=== PATIENT | male | born 1965 | race Caucasian/White ===

== ENCOUNTER 2024-10-04 07:50 | Outpatient (AMB) | payer MEDICAID, SELFPAY ==
--- NOTE | 2024-10-04 08:12 | PD.ORTHCLVIS ---
Vital signs 10/04/24 08:17 Height 1.68 m Height Method Stated Weight 84.397 kg Weight Measurement Method Standing Scale BMI 30.0 BP 140/83 H Blood Pressure Source Automatic Cuff Blood Pressure Location Right Upper Arm Position Sitting Respiration 18 Pulse 78 Pulse Source Monitor Temp 97.6 F Temp Source Temporal Artery Scan Pulse Oximetry (%) 95 Oxygen Delivery Method Room Air Med/Allergies Allergies & Medications Allergies No Known Drug Allergies Allergy (Verified 10/04/24 08:18) Medication Reconciliation ibuprofen 600 mg tablet 600 mg PO Q8H PRN 10/04/24 [History Confirmed 10/04/24] meloxicam 7.5 mg tablet 7.5 mg PO QDAY #45 tabs 10/04/24 [Rx Confirmed 10/04/24] Subjective Visit Visit for: new patient and knee Immunization / Flu Flu Vaccine in the Last 12 Months: No Flu Vaccine Exclusion Criteria: No Exclusion Criteria History of Present Illness Chief complaint: Bilateral knee pain Iza is a pleasant 59-year-old male with left greater than right knee pain. This has been ongoing for several years. He has tried ibuprofen. He has not had any injections or physical therapy. He reports a lot of pain on the front and sides of his knees Personal History Occupation: unemployed Red flag PMH: none Pain Pain level (0-10): 8 Pain duration: constant Pain location: inside (medial) and anterior Pain quality: sharp, dull and aching Pain timing: increases with activity and stairs Associated signs & symptoms: other (specify) (instablity) Ambulatory data Ambulatory device: none Treatments Improvement with previous injections: No Improvement with PT: No Improvement with NSAIDS: n/a Review of Systems Review of Systems: All systems negative unless otherwise noted in HPI. Exam Exam Patient is in no acute distress and is cooperative with the examination today. Breathing is nonlabored. In no respiratory distress. Bilateral extremities were evaluated and demonstrates sensation intact to light touch. Palpable pedal pulses are present. No significant edema is present. Bilateral hips were examined. The patient has no pain with log roll of the hips. Internal rotation to 30 degrees and external rotation to 30 degrees is painless. Negative FADIR. The left knee was examined. The left knee is in [varus] alignment. Range of motion from [0-115] degrees. Knee is stable to varus and valgus as well as AP translation with <5mm. Patient has a [negative] McMurrays. There is [no] pain with patellofemoral compression and [no] crepitus noted. The knee is [tender] to palpation [medially]. The right knee was also examined. The right knee is in [varus] alignment. Range of motion from [0-120] degrees. Knee is stable to varus and valgus as well as AP translation with <5mm. Patient has a [negative] McMurrays. There is [no] pain with patellofemoral compression and [no] crepitus noted. The knee is [tender] to palpation [medially]. Left knee x-rays demonstrate severe joint space narrowing medially. The report says this is mild. I disagree with the report. These are nonweightbearing films Assessment and Plan Problem List (1) Degenerative arthritis of knee, bilateral: Status: Acute Plan: Griffin is a 59-year-old male with left greater than right knee pain. This has been ongoing for several years. We discussed nonoperative and operative options. We will get weightbearing films of both knees to assess his right knee as well. We will likely do injections at the next visit. Will start him on meloxicam. We will get x-rays to see him back in approximately 1 month Office Procedures GNS Level of Care Nursing/Assessment Patient Status: Initial/New Patient Nursing Assessment/Reassesment: Medication Reconciliation, Update PMH in EMR and Vital Signs Coordination of Care: Complex Care and Chronic Disease 1-5, Education Complex Pt/Fam, Consent,records obtained, informed consent, Results/Orders obtained and Staff clarify orders Special Needs: Language special needs New Patient Charge New Patient Point Assignment: 1094 New Patient Point Charge: CONTACT CENTER AGENT Level 3 ([id number]) Past Medical History Past Medical History Have you ever been diagnosed with any of the following: Respiratory Problems Smoking: No Smoking Exposure: No
[2024-10-04 08:17] VITALS: BP 140/83; PULSE 78; RESP 18; TEMP 36.4; O2SAT 95
== END 2024-10-04 08:14 | disposition home or self-care (01) ==
PROVIDERS: PCP Licensed Practical Nurse; Referring Provider Licensed Practical Nurse; Supervising Provider Orthopaedic Surgery Adult Reconstructive Orthopaedic Surgery; Visit Provider Orthopaedic Surgery Adult Reconstructive Orthopaedic Surgery
DX: M17.0 Bilateral primary osteoarthritis of knee (principal); M25.562 Pain in left knee; M25.561 Pain in right knee
CPT/HCPCS: 99203; G0463

== ENCOUNTER → 2024-10-04 | Outpatient (CLI) | payer MEDICAID, SELFPAY ==
--- NOTE | 2024-10-04 08:43 | XR_ITS ---
Examination: Bilateral knees 2 views Right lateral knee left lateral knee 2 views Bilateral axial knees single view Exam date and time: 05/04/2024 0949 hours INDICATIONS: Bilateral knee pain one year TECHNIQUE: Bilateral AP knees standing single view, bilateral PA knees standing single view 30 degrees flexion Standing right lateral knee left lateral knee 2 views Bilateral axial knees single view total 5 views FINDINGS: Moderate osteopenia Advanced narrowing [id number] medial joint spaces right and left knee Significant osteoarthritis lateral joint spaces Bilateral advanced osteoarthritis patellofemoral joints IMPRESSION: Bilateral advanced tricompartment osteoarthritis, most severe medial joint spaces
== END | disposition home or self-care (01) ==
PROVIDERS: PCP Orthopaedic Surgery Adult Reconstructive Orthopaedic Surgery; Referring Provider Orthopaedic Surgery Adult Reconstructive Orthopaedic Surgery; Visit Provider Orthopaedic Surgery Adult Reconstructive Orthopaedic Surgery
DX: M17.0 Bilateral primary osteoarthritis of knee (principal)
CPT/HCPCS: 73564

== ENCOUNTER 2024-10-10 08:42 | Outpatient (AMB) | payer MEDICAID, SELFPAY ==
[2024-10-10 08:54] VITALS: BP 156/96; PULSE 80; RESP 19; TEMP 36.2; O2SAT 97
--- NOTE | 2024-10-10 08:54 | PD.ORTHCLVIS ---
Vital signs 10/10/24 08:54 Weight 84.425 kg Weight Measurement Method Standing Scale BP 156/96 H Blood Pressure Source Automatic Cuff Blood Pressure Location Right Upper Arm Position Sitting Respiration 19 Pulse 80 Pulse Source Monitor Temp 97.1 F Temp Source Temporal Artery Scan Pulse Oximetry (%) 97 Oxygen Delivery Method Room Air Med/Allergies Allergies & Medications Allergies No Known Drug Allergies Allergy (Verified 10/10/24 08:57) Medication Reconciliation ibuprofen 600 mg tablet 600 mg PO Q8H PRN 10/04/24 [History Confirmed 10/10/24] meloxicam 7.5 mg tablet 7.5 mg PO QDAY #45 tabs 10/04/24 [Rx Confirmed 10/10/24] Exam Exam Patient is in no acute distress and is cooperative with the examination today. Breathing is nonlabored. In no respiratory distress. Bilateral extremities were evaluated and demonstrates sensation intact to light touch. Palpable pedal pulses are present. No significant edema is present. Bilateral hips were examined. The patient has no pain with log roll of the hips. Internal rotation to 30 degrees and external rotation to 30 degrees is painless. Negative FADIR. The left knee was examined. The left knee is in [varus] alignment. Range of motion from [0-115] degrees. Knee is stable to varus and valgus as well as AP translation with <5mm. Patient has a [negative] McMurrays. There is [no] pain with patellofemoral compression and [no] crepitus noted. The knee is [tender] to palpation [medially]. The right knee was also examined. The right knee is in [varus] alignment. Range of motion from [0-120] degrees. Knee is stable to varus and valgus as well as AP translation with <5mm. Patient has a [negative] McMurrays. There is [no] pain with patellofemoral compression and [no] crepitus noted. The knee is [tender] to palpation [medially]. Left knee x-rays demonstrate severe joint space narrowing medially. The report says this is mild. I disagree with the report. These are nonweightbearing films Weightbearing films were reviewed. This demonstrates bilateral joint space narrowing and arthritis Of significant severity with varus deformity Assessment and Plan Problem List (1) Degenerative arthritis of knee, bilateral: Status: Acute Plan: 59-year-old male with bilateral knee pain and bilateral knee arthritis. We discussed nonoperative and operative options. He is not tried significant conservative treatment. We will thus try bilateral cortisone injections today. He is done reasonably well with meloxicam Recommend knee cortisone injections as patient would like to proceed with conservative treatment at this time. The risks and benefits of the procedure were reviewed with the patient and patient gave verbal consent to continue with the procedure. Procedure: performed by Dr. Frederick Using sterile technique the Bilateral knees were thoroughly prepped with alcohol, and approximately 1 cc of Kenalog 40 mg/mL and 4 cc of 1% lidocaine was injected into each knee without resistance into the medial tibial femoral joint space. The patient tolerated the procedure. Office Procedures GNS Level of Care Nursing/Assessment Patient Status: Established Patient Nursing Assessment/Reassesment: Medication Reconciliation, Update PMH in EMR and Vital Signs Coordination of Care: Complex Care and Chronic Disease 1-5, Education Complex Pt/Fam, Consent,records obtained, informed consent, Results/Orders obtained and Staff clarify orders Special Needs: Language special needs Established Patient Charge Established Patient Point Assignment: 95 Established Patient Point Charge: EP Level 3 (80-115) Surgical Proc/IM SQ injection Major Surgical Procedure: Yes (bilateral knee injections) Medication Given Medication Given Medication Given: Yes Documented Dose Given: 8 Route: Infiitration Medication Given Medication Given Medication Given: Yes Documented Dose Given: 2 Route: Infiitration Office Meds Xylocaine 10 mg/mL (1 %) injection solution Performing Provider: Ethan Frederick MD Performing Location: [facility] Administered by: Ethan Frederick MD on 10/10/24 09:25 Dose Route Admin Location Dispensed Lot Number Expiration Date [facility] Trimming Caser 40 mL Infiltration 40 mL [id number] 06/21/27 29491-740-53 [facility] triamcinolone acetonide 40 mg/mL suspension for injection Performing Provider: Ethan Frederick MD Performing Location: [facility] Administered by: Ethan Frederick MD on 10/10/24 09:25 Dose Route Admin Location Dispensed Lot Number Expiration Date [facility] Trimming Caser 80 mg Infiltration 2 mL [id number] 03/21/26 6666-9456-12 [employer] [place] Intake Visit Data Collection Reason for Visit:: F/U XRAYS Seen by Clinical Staff ONLY (RN/MA): No Verbal consent obtained for Telemed visit?: No Supervisor Cab 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 He has tried Anti-inflammatories. He also reports that his knees have been curving inward. The pain is affecting his quality life and happiness. He has not tried injections and he wants to try today Pain Pain level (0-10): 6 Pain duration: WITH MOVEMENT Pain location: inside (medial) Pain quality: dull and aching Pain timing: night and increases with activity Associated signs & symptoms: numbness, weakness and stiffness Ambulatory data Ambulatory device: none Treatments Improvement with previous injections: No Improvement with PT: No Improvement with NSAIDS: n/a Review of Systems Review of Systems: All systems negative unless otherwise noted in HPI.
== END 2024-10-10 09:33 | disposition home or self-care (01) ==
LOC: HODSRG 08:42
PROVIDERS: Supervising Provider Orthopaedic Surgery Adult Reconstructive Orthopaedic Surgery; Visit Provider Orthopaedic Surgery Adult Reconstructive Orthopaedic Surgery
DX: M17.0 Bilateral primary osteoarthritis of knee (principal); M25.562 Pain in left knee; M25.561 Pain in right knee
CPT/HCPCS: 20610; 99213; J3301; J3490; G0463

== ENCOUNTER 2025-01-10 08:16 | Outpatient (AMB) | payer MEDICAID, SELFPAY ==
--- NOTE | 2025-01-10 08:45 | ORTHONT_ITS ---
Vital signs 01/10/25 08:48 Height 1.68 m Height Method Stated Weight 82.781 kg Weight Measurement Method Standing Scale BMI 29.3 BP 143/92 H Blood Pressure Source Automatic Cuff Blood Pressure Location Left Upper Arm Position Sitting Respiration 18 Pulse 85 Pulse Source Monitor Temp 97.9 F Temp Source Temporal Artery Scan Pulse Oximetry (%) 94 L Oxygen Delivery Method Room Air Med/Allergies Allergies & Medications Allergies No Known Drug Allergies Allergy (Verified 01/10/25 08:50) Medication Reconciliation ibuprofen 600 mg tablet 600 mg PO Q8H PRN 10/04/24 [History Confirmed 01/10/25] meloxicam 7.5 mg tablet 7.5 mg PO QDAY #45 tabs 10/04/24 [Rx Confirmed 01/10/25] Exam Exam Patient is in no acute distress and is cooperative with the examination today. Breathing is nonlabored. In no respiratory distress. Bilateral extremities were evaluated and demonstrates sensation intact to light touch. Palpable pedal pulses are present. No significant edema is present. Bilateral hips were examined. The patient has no pain with log roll of the hips. Internal rotation to 30 degrees and external rotation to 30 degrees is painless. Negative FADIR. The left knee was examined. The left knee is in [varus] alignment. Range of motion from [0-115] degrees. Knee is stable to varus and valgus as well as AP translation with <5mm. Patient has a [negative] McMurrays. There is [no] pain with patellofemoral compression and [no] crepitus noted. The knee is [tender] to palpation [medially]. The right knee was also examined. The right knee is in [varus] alignment. Range of motion from [0-120] degrees. Knee is stable to varus and valgus as well as AP translation with <5mm. Patient has a [negative] McMurrays. There is [no] pain with patellofemoral compression and [no] crepitus noted. The knee is [tender] to palpation [medially]. Left knee x-rays demonstrate severe joint space narrowing medially. The report says this is mild. I disagree with the report. These are nonweightbearing films Weightbearing films were reviewed. This demonstrates bilateral joint space narrowing and arthritis Of significant severity with varus deformity Assessment and Plan Problem List (1) Degenerative arthritis of knee, bilateral: Status: Acute Plan: 59-year-old male with bilateral knee pain and bilateral knee arthritis. We discussed nonoperative and operative options. He has tried cortisone injections, anti-inflammatories, home exercises. He is optimized for surgery medically. We thus discussed total knee replacement is a reasonable option. The left knee hurts more and we will start on the side The nature and purpose of the total knee replacement, alternative method(s) of treatment, the material risks involved, and the possibility of complications were fully explained to the patient. The patient does NOT have any of the following contraindications to TKA: - Active infection of the knee joint, OR - Active systemic bacteremia, OR - Active skin infection or open wound at surgical site, OR - Neuropathic arthritis, OR - Severe, rapidly progressive neurological disease, OR - Severe medical condition that makes risks of surgery outweigh the potential benefit The patient was told the most common risks and complications associated with a total knee replacement include, but are not limited to: blood clots in the leg, fatal pulmonary embolism, dislocation of the prosthesis, intraoperative and postoperative fractures of the femur or tibia, infection, failure of the prosthesis or grafting materials, complications from anesthesia, reactions to blood transfusions, postoperative leg length inequality, instability of the knee replacement, nerve damage or injury, vascular injury, delayed wound healing, infection, other injury or even . In addition, there are risks associated with anesthesia given during this operation. Also, the patient was told that after undergoing a total knee replacement there may still be persistent pain or disability. The patient was informed that the success of this operation in part depends upon the mechanical devices which are going to be implanted and that these devices can fail or malfunction, and may need to be repaired or replaced and there are no guarantees as to the longevity of this device or its parts and that it or its parts could fail prematurely. The patient was also notified that during the course of surgery, there may be a need to use bone graft from donors, and that any bone graft used will be carefully screened for communicable diseases, including AIDS, hepatitis, Greg-Creutzfeldt, or other diseases, but despite the screening procedures, there is a small chance that they could contract one of these diseases. Finally, the patient was asked to follow completely and fully with all advice and recommended treatments, and that recovery and ultimate outcome are affected by their compliance with recommended treatment. We discussed the risks, benefits and treatment alternatives, and the patient is interested in proceeding with surgery. We will try to set this up as expeditiously as possible. Office Procedures GNS Level of Care Nursing/Assessment Patient Status: Established Patient Nursing Assessment/Reassesment: Medication Reconciliation, Update PMH in EMR and Vital Signs Coordination of Care: Complex Care and Chronic Disease 1-5, Education Complex Pt/Fam, Consent,records obtained, informed consent, Results/Orders obtained and Staff clarify orders Special Needs: Language special needs Established Patient Charge Established Patient Point Assignment: 95 Established Patient Point Charge: EP Level 3 (80-115) MA Intake Visit Data Collection New Patient or Established: Established Patient (seen at [facility] within 3 years) Reason for Visit:: 3 MTH BL KNEE INJECTION F/U Seen by Clinical Staff ONLY (RN/MA): No Gas Engine Operator 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 He has tried Anti-inflammatories. He also reports that his knees have been curving inward. The pain is affecting his quality life and happiness. He has tried cortisone injections last time and only received 2 weeks of relief. He reports that the pain is affecting his quality of life and happiness Pain Pain level (0-10): 8 Pain duration: WITH MOVEMENT Pain location: anterior Pain quality: dull, aching and other (specify) (POPPING) Pain timing: increases with activity and stairs Associated signs & symptoms: weakness and stiffness Ambulatory data Ambulatory device: none Treatments Number of previous injections: 2 Improvement with previous injections: No Improvement with PT: No Improvement with NSAIDS: no Review of Systems Review of Systems: All systems negative unless otherwise noted in HPI.
[2025-01-10 08:48] VITALS: BP 143/92; PULSE 85; RESP 18; TEMP 36.6; O2SAT 94; BMI 29.3
== END 2025-01-10 09:08 | disposition home or self-care (01) ==
LOC: HODSRG 08:16
PROVIDERS: Supervising Provider Orthopaedic Surgery Adult Reconstructive Orthopaedic Surgery; Visit Provider Orthopaedic Surgery Adult Reconstructive Orthopaedic Surgery
DX: M17.0 Bilateral primary osteoarthritis of knee (principal)
CPT/HCPCS: 99213; G0463

== ENCOUNTER 2025-04-15 10:16 | Outpatient (AMB) | payer MEDICAID, SELFPAY ==
[2025-04-15 10:39] VITALS: BP 151/94; PULSE 75; RESP 18; TEMP 36.7; O2SAT 97; BMI 28.3
--- NOTE | 2025-04-15 10:39 | PD.ORTHCLVIS ---
Vital signs 04/15/25 10:39 Height 1.68 m Height Method Stated Weight 79.946 kg Weight Measurement Method Standing Scale BMI 28.3 BP 151/94 H Blood Pressure Source Automatic Cuff Blood Pressure Location Left Upper Arm Position Sitting Respiration 18 Pulse 75 Pulse Source Monitor Temp 98.1 F Temp Source Temporal Artery Scan Pulse Oximetry (%) 97 Oxygen Delivery Method Room Air Med/Allergies Allergies & Medications Allergies No Known Drug Allergies Allergy (Verified 04/15/25 10:40) Medication Reconciliation ibuprofen 600 mg tablet 600 mg PO Q8H PRN 10/04/24 [History Confirmed 04/15/25] meloxicam 7.5 mg tablet 7.5 mg PO QDAY #45 tabs 10/04/24 [Rx Confirmed 04/15/25] Exam Exam Patient is in no acute distress and is cooperative with the examination today. Breathing is nonlabored. In no respiratory distress. Bilateral extremities were evaluated and demonstrates sensation intact to light touch. Palpable pedal pulses are present. No significant edema is present. Bilateral hips were examined. The patient has no pain with log roll of the hips. Internal rotation to 30 degrees and external rotation to 30 degrees is painless. Negative FADIR. The left knee was examined. The left knee is in [varus] alignment. Range of motion from [0-115] degrees. Knee is stable to varus and valgus as well as AP translation with <5mm. Patient has a [negative] McMurrays. There is [no] pain with patellofemoral compression and [no] crepitus noted. The knee is [tender] to palpation [medially]. The right knee was also examined. The right knee is in [varus] alignment. Range of motion from [0-120] degrees. Knee is stable to varus and valgus as well as AP translation with <5mm. Patient has a [negative] McMurrays. There is [no] pain with patellofemoral compression and [no] crepitus noted. The knee is [tender] to palpation [medially]. Left knee x-rays demonstrate severe joint space narrowing medially. The report says this is mild. I disagree with the report. These are nonweightbearing films Weightbearing films were reviewed. This demonstrates bilateral joint space narrowing and arthritis Of significant severity with varus deformity Assessment and Plan Problem List (1) Degenerative arthritis of knee, bilateral: Status: Acute Plan: 59-year-old male with bilateral knee pain and bilateral knee arthritis. We discussed nonoperative and operative options. He has tried cortisone injections, anti-inflammatories, home exercises. He is optimized for surgery medically. We thus discussed total knee replacement is a reasonable option. The left knee hurts more and we will start on the side The nature and purpose of the total knee replacement, alternative method(s) of treatment, the material risks involved, and the possibility of complications were fully explained to the patient. The patient does NOT have any of the following contraindications to TKA: - Active infection of the knee joint, OR - Active systemic bacteremia, OR - Active skin infection or open wound at surgical site, OR - Neuropathic arthritis, OR - Severe, rapidly progressive neurological disease, OR - Severe medical condition that makes risks of surgery outweigh the potential benefit The patient was told the most common risks and complications associated with a total knee replacement include, but are not limited to: blood clots in the leg, fatal pulmonary embolism, dislocation of the prosthesis, intraoperative and postoperative fractures of the femur or tibia, infection, failure of the prosthesis or grafting materials, complications from anesthesia, reactions to blood transfusions, postoperative leg length inequality, instability of the knee replacement, nerve damage or injury, vascular injury, delayed wound healing, infection, other injury or even . In addition, there are risks associated with anesthesia given during this operation. Also, the patient was told that after undergoing a total knee replacement there may still be persistent pain or disability. The patient was informed that the success of this operation in part depends upon the mechanical devices which are going to be implanted and that these devices can fail or malfunction, and may need to be repaired or replaced and there are no guarantees as to the longevity of this device or its parts and that it or its parts could fail prematurely. The patient was also notified that during the course of surgery, there may be a need to use bone graft from donors, and that any bone graft used will be carefully screened for communicable diseases, including AIDS, hepatitis, Greg-Creutzfeldt, or other diseases, but despite the screening procedures, there is a small chance that they could contract one of these diseases. Finally, the patient was asked to follow completely and fully with all advice and recommended treatments, and that recovery and ultimate outcome are affected by their compliance with recommended treatment. We discussed the risks, benefits and treatment alternatives, and the patient is interested in proceeding with surgery. We will try to set this up as expeditiously as possible. Office Procedures GNS Level of Care Nursing/Assessment Patient Status: Established Patient Nursing Assessment/Reassesment: Medication Reconciliation, Update PMH in EMR and Vital Signs Coordination of Care: Complex Care and Chronic Disease 1-5, Education Complex Pt/Fam, Consent,records obtained, informed consent, Results/Orders obtained and Staff clarify orders Special Needs: Language special needs Established Patient Charge Established Patient Point Assignment: 95 Established Patient Point Charge: EP Level 3 (80-115) MA Intake Visit Data Collection New Patient or Established: Established Patient (seen at [facility] within 3 years) Reason for Visit:: PRE OP L TKA Seen by Clinical Staff ONLY (RN/MA): No 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 He has tried Anti-inflammatories. He also reports that his knees have been curving inward. The pain is affecting his quality life and happiness. He has tried cortisone injections last time and only received 2 weeks of relief. He reports that the pain is affecting his quality of life and happiness Pain Pain level (0-10): 8 Pain duration: WITH MOVEMENT Pain location: anterior Pain quality: dull, aching and other (specify) (POPPING) Pain timing: increases with activity and stairs Associated signs & symptoms: weakness and stiffness Ambulatory data Ambulatory device: none Treatments Number of previous injections: 2 Improvement with previous injections: No Improvement with PT: No Improvement with NSAIDS: no Review of Systems Review of Systems: All systems negative unless otherwise noted in HPI.
== END 2025-04-15 11:07 | disposition home or self-care (01) ==
LOC: HODSRG 10:16
PROVIDERS: Supervising Provider Orthopaedic Surgery Adult Reconstructive Orthopaedic Surgery; Visit Provider Orthopaedic Surgery Adult Reconstructive Orthopaedic Surgery
DX: M17.0 Bilateral primary osteoarthritis of knee (principal); M25.562 Pain in left knee; M25.561 Pain in right knee
CPT/HCPCS: 99213; G0463

== ENCOUNTER → 2025-04-15 | Outpatient (CLI) | payer MEDICAID, SELFPAY ==
--- NOTE | 2025-04-15 10:00 | XR_ITS ---
Examination: CT left lower extremity without intravenous contrast 2-D sagittal reconstructions. 2-D coronal reconstructions. 3-D reconstructions. Date and time of exam:April 15, 2025 1003 hours INDICATIONS: Diagnosis unilateral primary osteoarthritis left knee, left knee pain 2 years CTDI: vol (mGy):9.45 DLP: (mGycm):778 Technique: Multiple 1.25 mm axial sections of the left lower extremity without intravenous contrast have been obtained. 2-D sagittal and coronal reconstructions have been obtained. 3-D reconstructions have been obtained. Low dose protocols were performed. One or more of the following dose reduction techniques were used; automated exposure control, adjustment of the mA and/or KV according to patient size, use of iterative reconstruction technique. Findings: Mild osteopenia Mild left hip osteoarthritis, no left hip fracture or dislocation Advanced tricompartment osteoarthritis left knee Severe narrowing medial joint space No fracture IMPRESSION: Advanced tricompartment osteoarthritis left knee
== END | disposition home or self-care (01) ==
PROVIDERS: Referring Provider Orthopaedic Surgery Adult Reconstructive Orthopaedic Surgery; Visit Provider Orthopaedic Surgery Adult Reconstructive Orthopaedic Surgery
DX: M17.12 Unilateral primary osteoarthritis, left knee (principal)
CPT/HCPCS: 73700

== ENCOUNTER 2025-04-28 05:35 | Day surgery (SDC) | payer MEDICAID, SELFPAY ==
[2025-04-23 11:35] VITALS: BMI 28.3
[2025-04-23 12:18] LABS: Basophils # (Auto) 0.0 Thou/mm3 (0.0-0.2); Basophils % (Auto) 1 % (0-2.5); Eosinophils # (Auto) 0.1 Thou/mm3 (0.0-0.5); Eosinophils % (Auto) 2 % (0-10); Hematocrit 44.6 % (41.0-53.0); Hemoglobin 15.6 g/dL (13.5-16.0); Immature Granulocytes Auto 0.04 Thou/mm3 (0.00-0.00); Lymphocytes # (Auto) 2.4 Thou/mm3 (1.0-4.8); Lymphocytes % (Auto) 42 % (10-50); Mean Corpuscular HGB Conc 35.0 g/dl (31.0-37.0); Mean Corpuscular Hemoglobin 31.6 pg (25.0-35.0); Mean Corpuscular Volume 91 fL (80-100); Monocytes # (Auto) 0.5 Thou/mm3 (0.0-0.8); Monocytes % (Auto) 9 % (0-12); Neutrophils # (Auto) 2.6 Thou/mm3 (1.8-7.7); Neutrophils % (Auto) 46 % (37-80); Nucleated Red Blood Cell # 0.00 Thou/mm3 (0.00-0.00); Nucleated Red Blood Cell % 0 /100 WBC (0); Platelet Count 217 Thou/mm3 (140-440); RDW Standard Deviation 42.7 fL (35.1-43.9); Red Blood Count 4.93 Miln/mm3 (4.50-5.90); White Blood Count 5.8 Thou/mm3 (3.8-10.6)
[2025-04-23 12:33] LABS: INR 1.0 (0.9-1.3); Partial Thromboplastin Time 25.8 Seconds (22.0-36.0); Prothrombin Time 10.9 Seconds (9.0-12.2)
[2025-04-23 12:40] LABS: Alanine Aminotransferase 29 U/L (10-49); Albumin, Serum 4.7 gm/dL (3.4-4.8); Albumin/Globulin Ratio 1.7 (1.2-2.2); Alkaline Phosphatase 80 U/L (46-116); Anion Gap 6 (7-16); Aspartate Amino Transferase 29 U/L (0-34); BUN/Creatinine Ratio 16 Ratio (12-20); Bilirubin,Total 1.4 mg/dL (0.3-1.2); Blood Urea Nitrogen 16 mg/dL (9-23); Calcium 9.3 mg/dL (8.3-10.6); Calcium (Corrected) 9.3 mg/dL (8.5-10.1); Carbon Dioxide 26.7 mMol/L (20.0-31.0); Chloride 109 mMol/L (98-107); Creatinine (Component) 1.0 mg/dL (0.6-1.3); Estimated Creatinine Clearance 75.9 mL/min (>60); Globulin 2.7 gm/dL (2.3-3.5); Glucose 98 mg/dL (74-106); Osmolality,Calculated 284 (275-295); Potassium 4.2 mMol/L (3.4-5.1); Sodium 142 mMol/L (136-145); Total Protein 7.4 gm/dL (5.7-8.2); eGFR > 60 See Note
[2025-04-28] VITALS (11 sets, daily range): BP systolic 138–167; BP diastolic 82–104; PULSE 67–74; RESP 17–20; TEMP 36.5–36.7; O2SAT 95–100; BMI 19.9
[2025-04-28] MEDS: PREGABALIN 75 MG CAPSULE PO (06:26)
[2025-04-28] MEDS: MELOXICAM 7.5 MG TABLET PO (06:26)
[2025-04-28] MEDS: ACETAMINOPHEN 325 MG TABLET 650 MG PO (06:26)
--- NOTE | 2025-04-28 07:30 | SUR.PREOP ---
Patient expressed gratitude for prayer before their procedure.
--- NOTE | 2025-04-28 09:03 | PD.SUROPNT ---
Date of Procedure 04/28/25 Pre Op Diagnosis left knee osteoarthritis Post Op Diagnosis left knee osteoarthritis Procedure left total knee replacement alexia Findings full thickness cartilage loss and osteophytes Procedure Description left total knee replacement Anesthesia GETA Implants nba Pathology / specimen None Pathology comment: none Estimated Blood Loss 150 Condition Stable Disposition same day Surgeon Ethan Frederick MD Surgical Staff Operation Date: 04/28/25 07:30 Case Staff [employer] PRINCIPAL: Barney Hickman RNpara professional: Opal Ni
--- NOTE | 2025-04-28 09:05 | XR_ITS ---
Examination: left knee 2 views TECHNIQUE: AP lateral right knee 2 views Date and time: April 28, 2025 0958 hours INDICATIONS: Postop knee replacement FINDINGS: Total left knee arthroplasty Satisfactory alignment Moderate osteopenia IMPRESSION: Total left knee arthroplasty with satisfactory alignment
--- NOTE | 2025-04-28 09:24 | SUR.PHASEI ---
0924 Patient arrived to recovery resting comfortably in [facility], oral airway removed upon arrival, on oxygen 6L via oxy mask, breathing unlabored, vital signs stable, denies pain, dressing intact to left knee; prineo, telfa, abc, webril, jarrod wraps, no bleeding noted, bilateral dorsalis pedis pulses present when palpated, patient has good circultation to bilateral lower extremities; skin color normal for patient and warm to touch, report received from Andra GOMEZ and Barney THOMPSON.
--- NOTE | 2025-04-28 09:56 | SUR.PHASEII ---
0956 Barney THOMPSON at bedside, patient endorsed 4/10 pain, verbal order read-back received from Oxycodone IR 5mg oral tab x1 dose for pain, will enter order in EMR and administer to patient per anesthesia order
--- NOTE | 2025-04-28 10:03 | SUR.PHASEII ---
XRAY complete per MD order
--- NOTE | 2025-04-28 10:08 | SUR.PHASEII ---
1008 patient ate a jello; tolerated well
[2025-04-28] MEDS: oxyCODONE HCL 5 MG IR TAB PO (10:10)
--- NOTE | 2025-04-28 11:09 | SUR.PHASEII ---
1109 Patient cleared by physical therapist Tonny to proceed with discharge
[2025-04-28] MEDS: ONDANSETRON INJ 2 MG/ML INJ 2 ML 4 MG IVP (11:16)
--- NOTE | 2025-04-28 11:25 | SUR.PHASEII ---
1116 Patient endorsed nausea, Zofran 4mg IVP administered per anesthesia order, will monitor patient 1125 Medication effective, patient eating ice chips, denies nausea
--- NOTE | 2025-04-28 11:30 | SUR.PHASEII ---
1130 Patient meets discharge criteria from recovery, awake and alert, breathing unlabored, vital signs stable, denies pain, vital signs stable, dressing intact; no bleeding noted, eating ice chips; denies nausea, patient assisted with dressing into his clothing by this information writer, discharge instructions given to patient and patients son with the assistance of the telephone diplomatic interpreter Nestor ID#[id number], patients son signed discharge instructions. Patient given all his belongings prior to discharge, transported via wheelchair and left in a private vehicle.
== END 2025-04-28 11:30 | disposition home or self-care (01) ==
PROVIDERS: Anesthesiology; Referring Provider Orthopaedic Surgery Adult Reconstructive Orthopaedic Surgery; Visit Provider Orthopaedic Surgery Adult Reconstructive Orthopaedic Surgery
PROC: (CPT 27447; principal; 2025-04-28 07:30)
DX: M17.12 Unilateral primary osteoarthritis, left knee (principal); M25.762 Osteophyte, left knee
CPT/HCPCS: 27447; 20985; 36415; 73560; 80053; 85025; 85610; 85730; 97162; A4217; C1713; C1776; J0690; J1100; J1171; J2405; J2704; J3010; J3490; J7999; A4648; A4649; A9270

== ENCOUNTER 2025-05-13 11:23 | Outpatient (AMB) | payer MEDICAID, SELFPAY ==
[2025-05-13 11:41] VITALS: BP 118/79; PULSE 98; RESP 18; TEMP 36.6; O2SAT 97; BMI 27.3
--- NOTE | 2025-05-13 11:41 | ORTHONT_ITS ---
Vital signs 05/13/25 11:41 Height 1.68 m Height Method Stated Weight 77.337 kg Weight Measurement Method Standing Scale BMI 27.3 BP 118/79 Blood Pressure Source Automatic Cuff Blood Pressure Location Left Upper Arm Position Sitting Respiration 18 Pulse 98 Pulse Source Monitor Temp 97.8 F Temp Source Temporal Artery Scan Pulse Oximetry (%) 97 Oxygen Delivery Method Room Air Med/Allergies Allergies & Medications Allergies No Known Drug Allergies Allergy (Verified 05/13/25 11:43) Medication Reconciliation meloxicam 7.5 mg tablet 7.5 mg PO QDAY #45 tabs 10/04/24 [Rx Confirmed 05/13/25] acetaminophen 500 mg tablet (Acetaminophen Extra Strength) 1,000 mg (2 x 500 mg) PO Q6H PRN pain #90 tabs 04/28/25 [Rx Confirmed 05/13/25] aspirin 81 mg tablet,delayed release 81 mg PO BID #60 tabs 04/28/25 [Rx Confirmed 05/13/25] doxycycline hyclate 100 mg tablet 100 mg PO BID #14 tabs 04/28/25 [Rx Confirmed 05/13/25] gabapentin 300 mg capsule 300 mg PO .qhs #30 caps 04/28/25 [Rx Confirmed 04/23 12/17] sennosides 8.6 mg-docusate sodium 50 mg tablet (Senna-S) 1 tab-cap PO QDAY #30 tabs 04/28/25 [Rx Confirmed 05/13/25] gabapentin 300 mg capsule 300 mg PO QHS #60 caps 04/29/25 [Rx Confirmed 05/13] oxycodone 5 mg tablet 5 mg PO Q6H PRN pain #28 tabs 05/06/25 [Rx Confirmed 05/13/25] Exam Exam Patient is in no acute distress and is cooperative with the examination today. Breathing is nonlabored. Patient has a normal mood and affect. The patient has a gait that is nonantalgic Bilateral extremities were evaluated and demonstrates sensation intact to light touch. Palpable pedal pulses are present. No significant edema is present. Bilateral hips were examined. The patient has no pain with log roll of the hips. Internal rotation to 30 degrees and external rotation to 30 degrees is painless. Negative FADIR. Left knee was examined today. The left knee is in reasonable alignment. Range of motion from 0-120 degrees. Knee is stable to varus and valgus as well as AP translation with <5mm. Patient has a negative McMurrays. There is no pain with patellofemoral compression and no crepitus noted. The knee is nontender to palpation. Right knee incision is clean dry intact Assessment and Plan Problem List (1) History of total right knee replacement: Status: Acute Plan: Patient is a pleasant 60-year-old male status post right total knee replacement. He is doing well. He is transition to outpatient physical therapy. He should finish his aspirin Office Procedures GNS Level of Care Nursing/Assessment Patient Status: Established Patient Nursing Assessment/Reassesment: Medication Reconciliation, Update PMH in EMR and Vital Signs Coordination of Care: Complex Care and Chronic Disease 1-5, Education Complex Pt/Fam, Consent,records obtained, informed consent, Results/Orders obtained and Staff clarify orders Special Needs: Language special needs Established Patient Charge Established Patient Point Assignment: 95 Established Patient Point Charge: Level 3 (80-115) MA Intake Visit Data Collection New Patient or Established: Established Patient (seen at [facility] within 3 years) Reason for Visit:: 2 WEEK F/U LEFT TKA Seen by Clinical Staff ONLY (RN/MA): No Developer Architect Required: Yes PCP or OBGYN visit in last 3 months: Yes Hx Now: No Do You Feel Safe at Home: Yes Authorities Contacted: N/A Questionairres Past Medical History Past Medical History Have you ever been diagnosed with any of the following: Neurological Problems Seizures: No Cardiology Problems Congestive Heart Failure: No Respiratory Problems Chronic Obstructive Pulmonary Disease (COPD): No Smoking: No Smoking Exposure: No Stomache/Intestinal Problems Hepatitis: No Genital/Urinary Problems Renal Disease: No Musculoskeletal Problems Arthritis: Yes Endocrine Problems Diabetes Mellitus Type 1: No Diabetes Mellitus Type 2: No Other Problems Hospitalization: No Shingles: No Blood Transfusions: No Blood Transfusion Reaction: No Anesthesia Reactions: No Cancer: No Subjective Visit Visit for: follow up visit, post op #1 and knee Immunization / Flu Flu Vaccine in the Last 12 Months: No Flu Vaccine Exclusion Criteria: No Exclusion Criteria History of Present Illness Chief complaint: Right knee replacement Patient is doing well status post right total knee replacement. He reports the pain is well-controlled Pain Pain level (0-10): 7 Pain duration: ON AND OFF Pain location: inside (medial) and anterior Pain quality: dull and aching Pain timing: increases with activity Ambulatory data Ambulatory device: walker Treatments Improvement with previous injections: No Improvement with PT: No Improvement with NSAIDS: no Review of Systems Review of Systems: All systems negative unless otherwise noted in HPI.
== END 2025-05-13 11:47 | disposition home or self-care (01) ==
LOC: HODSRG 11:23
PROVIDERS: Supervising Provider Orthopaedic Surgery Adult Reconstructive Orthopaedic Surgery; Visit Provider Orthopaedic Surgery Adult Reconstructive Orthopaedic Surgery
DX: Z96.651 Presence of right artificial knee joint (principal)
CPT/HCPCS: 99213; G0463

== ENCOUNTER 2025-07-08 15:09 | Outpatient (AMB) | payer MEDICAID, SELFPAY ==
--- NOTE | 2025-07-08 15:30 | ORTHONT_ITS ---
Vital signs 07/08/25 15:41 Height 1.68 m Height Method Stated Weight 80.853 kg Weight Measurement Method Standing Scale BMI 28.6 BP 138/87 H Blood Pressure Source Automatic Cuff Blood Pressure Location Left Upper Arm Position Sitting Respiration 18 Pulse 84 Pulse Source Monitor Temp 97.6 F Temp Source Temporal Artery Scan Pulse Oximetry (%) 96 Oxygen Delivery Method Room Air Med/Allergies Allergies & Medications Allergies No Known Drug Allergies Allergy (Verified 07/08/25 15:41) Medication Reconciliation meloxicam 7.5 mg tablet 7.5 mg PO QDAY #45 tabs 10/04/24 [Rx Confirmed 07/08/25] acetaminophen 500 mg tablet (Acetaminophen Extra Strength) 1,000 mg (2 x 500 mg) PO Q6H PRN pain #90 tabs 04/28/25 [Rx Confirmed 07/08/25] sennosides 8.6 mg-docusate sodium 50 mg tablet (Senna-S) 1 tab-cap PO QDAY #30 tabs 04/28/25 [Rx Confirmed 07/08/25] gabapentin 300 mg capsule 300 mg PO QHS #60 caps 04/29/25 [Rx Confirmed 07/08/25] oxycodone 5 mg tablet 5 mg PO Q6H PRN pain #28 tabs 06/24/25 [Rx Confirmed 07/08/25] Exam Exam Patient is in no acute distress and is cooperative with the examination today. Breathing is nonlabored. Patient has a normal mood and affect. The patient has a gait that is nonantalgic Bilateral extremities were evaluated and demonstrates sensation intact to light touch. Palpable pedal pulses are present. No significant edema is present. Bilateral hips were examined. The patient has no pain with log roll of the hips. Internal rotation to 30 degrees and external rotation to 30 degrees is painless. Negative FADIR. Left knee was examined today. The left knee is in reasonable alignment. Range of motion from 0-120 degrees. Knee is stable to varus and valgus as well as AP translation with <5mm. Patient has a negative McMurrays. There is no pain with patellofemoral compression and no crepitus noted. The knee is nontender to palpation. Right knee incision is clean dry intact Assessment and Plan Problem List (1) History of total right knee replacement: Status: Acute Plan: Patient is a pleasant 60-year-old male status post left total knee replacement. He is doing well. Office Procedures GNS Level of Care Nursing/Assessment Patient Status: Established Patient Nursing Assessment/Reassesment: Medication Reconciliation, Update PMH in EMR and Vital Signs Coordination of Care: Complex Care and Chronic Disease 1-5, Education Complex Pt/Fam, Consent,records obtained, informed consent, Results/Orders obtained and Staff clarify orders Special Needs: Language special needs Established Patient Charge Established Patient Point Assignment: 95 Established Patient Point Charge: EP Level 3 (80-115) MA Intake Visit Data Collection New Patient or Established: Established Patient (seen at [facility] within 3 years) Reason for Visit:: 4 WK L TKA FU Seen by Clinical Staff ONLY (RN/MA): No Pack Train Driver 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: Yes PCP or OBGYN visit in last 3 months: Yes Hx Now: No Do You Feel Safe at Home: Yes Authorities Contacted: N/A Questionairres Past Medical History Past Medical History Have you ever been diagnosed with any of the following: Neurological Problems Seizures: No Cardiology Problems Congestive Heart Failure: No Respiratory Problems Chronic Obstructive Pulmonary Disease (COPD): No Smoking: No Smoking Exposure: No Stomache/Intestinal Problems Hepatitis: No Genital/Urinary Problems Renal Disease: No Musculoskeletal Problems Arthritis: Yes Endocrine Problems Diabetes Mellitus Type 1: No Diabetes Mellitus Type 2: No Other Problems Hospitalization: No Shingles: No Blood Transfusions: No Blood Transfusion Reaction: No Anesthesia Reactions: No Cancer: No Subjective Visit Visit for: follow up visit, post op #2 and knee Immunization / Flu Flu Vaccine in the Last 12 Months: No Flu Vaccine Exclusion Criteria: No Exclusion Criteria History of Present Illness Chief complaint: Right knee replacement 4 WEEK FU Patient is doing well status post left total knee replacement. He reports the pain is well-controlled. He reports that the right knee is actually considerably worse Pain Pain level (0-10): 7 Pain duration: ON AND OFF Pain location: inside (medial) and anterior Pain quality: dull and aching Pain timing: increases with activity Ambulatory data Ambulatory device: walker Treatments Improvement with previous injections: No Improvement with PT: No Improvement with NSAIDS: no Review of Systems Review of Systems: All systems negative unless otherwise noted in HPI.
[2025-07-08 15:41] VITALS: BP 138/87; PULSE 84; RESP 18; TEMP 36.4; O2SAT 96; BMI 28.6
--- NOTE | 2025-07-08 15:41 | XR_ITS ---
Examination: Bilateral AP knees single view Left knee PA lateral axial 3 views TECHNIQUE: Bilateral AP knees standing single view Left knee PA standing flexion, standing lateral, axial left knee 3 views total 4 views Date and time: July 08, 2025 1547 hours INDICATIONS: Post left knee arthroplasty April 2025. FINDINGS: Moderate osteopenia Severe narrowing medial joint space right knee Significant osteoarthritis lateral joint space right knee Total left knee arthroplasty. Satisfactory alignment. No patellar dislocation IMPRESSION: Severe narrowing medial joint space right knee Significant osteoarthritis lateral joint space right knee Total left knee arthroplasty with satisfactory alignment
== END 2025-07-08 15:45 | disposition home or self-care (01) ==
PROVIDERS: Supervising Provider Orthopaedic Surgery Adult Reconstructive Orthopaedic Surgery; Visit Provider Orthopaedic Surgery Adult Reconstructive Orthopaedic Surgery
DX: Z96.652 Presence of left artificial knee joint (principal); M17.11 Unilateral primary osteoarthritis, right knee
CPT/HCPCS: 73564; 99213; G0463

== ENCOUNTER 2025-08-12 14:47 | Outpatient (AMB) | payer MEDICAID, SELFPAY ==
--- NOTE | 2025-08-12 15:06 | PD.ORTHCLVIS ---
Vital signs 08/12/25 15:07 Height 1.68 m Height Method Measured Weight 80.768 kg Weight Measurement Method Standing Scale BMI 28.6 BP 132/94 H Blood Pressure Source Automatic Cuff Blood Pressure Location Left Upper Arm Position Sitting Respiration 18 Pulse 101 H Pulse Source Monitor Temp 97.7 F Temp Source Temporal Artery Scan Pulse Oximetry (%) 93 L Oxygen Delivery Method Room Air Med/Allergies Allergies & Medications Allergies No Known Drug Allergies Allergy (Verified 08/12/25 15:08) Medication Reconciliation meloxicam 7.5 mg tablet 7.5 mg PO QDAY #45 tabs 10/04/24 [Rx Confirmed 08/12/25] acetaminophen 500 mg tablet (Acetaminophen Extra Strength) 1,000 mg (2 x 500 mg) PO Q6H PRN pain #90 tabs 04/28/25 [Rx Confirmed 08/12/25] sennosides 8.6 mg-docusate sodium 50 mg tablet (Senna-S) 1 tab-cap PO QDAY #30 tabs 04/28/25 [Rx Confirmed 08/12/25] oxycodone 5 mg tablet 5 mg PO Q6H PRN pain #28 tabs 06/24/25 [Rx Confirmed 08/12/25] gabapentin 300 mg capsule 300 mg PO QHS #60 caps 07/08/25 [Rx Confirmed 08/12/25] Exam Exam Patient is in no acute distress and is cooperative with the examination today. Breathing is nonlabored. Patient has a normal mood and affect. The patient has a gait that is nonantalgic Bilateral extremities were evaluated and demonstrates sensation intact to light touch. Palpable pedal pulses are present. No significant edema is present. Bilateral hips were examined. The patient has no pain with log roll of the hips. Internal rotation to 30 degrees and external rotation to 30 degrees is painless. Negative FADIR. Left knee incisions clean dry intact. Range of motion 0 to 105 degrees Right knee is tender to palpation medially. There is varus deformity. Knee feels stable to varus and valgus stress as well as X-rays of the bilateral knees demonstrate significant joint space narrowing medially of the right knee with complete obliteration of the medial joint space. The left knee demonstrates a cementless total knee replacement in alignment and position Assessment and Plan Problem List (1) History of total right knee replacement: Status: Acute Plan: Patient is a pleasant 60-year-old male status post left total knee replacement. He is doing well. The pain in his right knee is affecting his quality life and happiness. He has tried multiple injections as well as anti-inflammatories and home exercises. He reports the pain is affecting his quality life and happiness. We discussed a right total knee replacement is a reasonable option The nature and purpose of the right total knee replacement, alternative method(s) of treatment, the material risks involved, and the possibility of complications were fully explained to the patient. The patient does NOT have any of the following contraindications to TKA: - Active infection of the knee joint, OR - Active systemic bacteremia, OR - Active skin infection or open wound at surgical site, OR - Neuropathic arthritis, OR - Severe, rapidly progressive neurological disease, OR - Severe medical condition that makes risks of surgery outweigh the potential benefit The patient was told the most common risks and complications associated with a total knee replacement include, but are not limited to: blood clots in the leg, fatal pulmonary embolism, dislocation of the prosthesis, intraoperative and postoperative fractures of the femur or tibia, infection, failure of the prosthesis or grafting materials, complications from anesthesia, reactions to blood transfusions, postoperative leg length inequality, instability of the knee replacement, nerve damage or injury, vascular injury, delayed wound healing, infection, other injury or even . In addition, there are risks associated with anesthesia given during this operation. Also, the patient was told that after undergoing a total knee replacement there may still be persistent pain or disability. The patient was informed that the success of this operation in part depends upon the mechanical devices which are going to be implanted and that these devices can fail or malfunction, and may need to be repaired or replaced and there are no guarantees as to the longevity of this device or its parts and that it or its parts could fail prematurely. The patient was also notified that during the course of surgery, there may be a need to use bone graft from donors, and that any bone graft used will be carefully screened for communicable diseases, including AIDS, hepatitis, Greg-Creutzfeldt, or other diseases, but despite the screening procedures, there is a small chance that they could contract one of these diseases. Finally, the patient was asked to follow completely and fully with all advice and recommended treatments, and that recovery and ultimate outcome are affected by their compliance with recommended treatment. We discussed the risks, benefits and treatment alternatives, and the patient is interested in proceeding with surgery. We will try to set this up as expeditiously as possible. Office Procedures GNS Level of Care Nursing/Assessment Patient Status: Established Patient Nursing Assessment/Reassesment: Medication Reconciliation, Update PMH in EMR and Vital Signs Coordination of Care: Complex Care and Chronic Disease 1-5, Education Complex Pt/Fam, Consent,records obtained, informed consent, Results/Orders obtained and Staff clarify orders Special Needs: Language special needs Established Patient Charge Established Patient Point Assignment: 95 Established Patient Point Charge: EP Level 3 (80-115) MA Intake Visit Data Collection New Patient or Established: Established Patient (seen at [facility] within 3 years) Reason for Visit:: XRAY F/U TKA Seen by Clinical Staff ONLY (RN/MA): No 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: 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 PCP or OBGYN visit in last 3 months: Yes Hx Now: No Do You Feel Safe at Home: Yes Authorities Contacted: N/A Questionairres Past Medical History Past Medical History Have you ever been diagnosed with any of the following: Neurological Problems Seizures: No Cardiology Problems Congestive Heart Failure: No Respiratory Problems Chronic Obstructive Pulmonary Disease (COPD): No Smoking: No Smoking Exposure: No Stomache/Intestinal Problems Hepatitis: No Genital/Urinary Problems Renal Disease: No Musculoskeletal Problems Arthritis: Yes Endocrine Problems Diabetes Mellitus Type 1: No Diabetes Mellitus Type 2: No Other Problems Hospitalization: No Shingles: No Blood Transfusions: No Blood Transfusion Reaction: No Anesthesia Reactions: No Cancer: No Subjective Visit Visit for: follow up visit and knee Immunization / Flu Flu Vaccine in the Last 12 Months: No Flu Vaccine Exclusion Criteria: No Exclusion Criteria History of Present Illness Chief complaint: XRAY F/U TKA Patient is doing well status post left total knee replacement. He reports the pain is well-controlled. He reports that the right knee is actually considerably worse. The pain in the right knee has been ongoing for several years, He has tried multiple injections and NSAIDs as well as home exercises. The last injection in the right knee only lasted for 1 week Pain Pain level (0-10): 2 Pain duration: ON AND OFF Pain location: inside (medial) and anterior Pain quality: dull and aching Pain timing: increases with activity Ambulatory data Ambulatory device: none Treatments Improvement with previous injections: No Improvement with PT: No Improvement with NSAIDS: no Review of Systems Review of Systems: All systems negative unless otherwise noted in HPI.
[2025-08-12 15:07] VITALS: BP 132/94; PULSE 101; RESP 18; TEMP 36.5; O2SAT 93; BMI 28.6
--- NOTE | 2025-08-12 15:27 | XR_ITS ---
Examination: Left hip AP, lateral, AP pelvis 3 views Technique: Hip AP lateral, AP pelvis, 3 views Exam date and time: August 12, 2025, 1527 hours MEDICATIONS: Left hip pain beginning 3 months ago. FINDINGS: No left hip fracture or dislocation Mild to moderate narrowing hip joints bilaterally Right hip bones of the pelvis intact IMPRESSION: No left hip fracture or dislocation Mild to moderate narrowing hip joints.
== END 2025-08-12 15:33 | disposition home or self-care (01) ==
PROVIDERS: Supervising Provider Orthopaedic Surgery Adult Reconstructive Orthopaedic Surgery; Visit Provider Orthopaedic Surgery Adult Reconstructive Orthopaedic Surgery
DX: Z47.1 Aftercare following joint replacement surgery (principal); Z96.652 Presence of left artificial knee joint; M25.561 Pain in right knee; M25.852 Other specified joint disorders, left hip
CPT/HCPCS: 73502; 99213; G0463

== ENCOUNTER 2025-09-09 10:56 | Outpatient (AMB) | payer MEDICAID, SELFPAY ==
[2025-09-09 11:09] VITALS: BP 131/86; PULSE 88; RESP 16; TEMP 36.7; O2SAT 96; BMI 28.8
--- NOTE | 2025-09-09 11:09 | PD.ORTHCLVIS ---
Vital signs 09/09/25 11:09 Height 1.68 m Height Method Stated Weight 81.335 kg Weight Measurement Method Standing Scale BMI 28.8 BP 131/86 H Blood Pressure Source Automatic Cuff Blood Pressure Location Left Upper Arm Position Sitting Respiration 16 Pulse 88 Pulse Source Monitor Temp 98.1 F Temp Source Temporal Artery Scan Pulse Oximetry (%) 96 Oxygen Delivery Method Room Air Med/Allergies Allergies & Medications Allergies No Known Drug Allergies Allergy (Verified 09/09/25 11:10) Medication Reconciliation meloxicam 7.5 mg tablet 7.5 mg PO QDAY #45 tabs 10/04/24 [Rx Confirmed 09/09/25] acetaminophen 500 mg tablet (Acetaminophen Extra Strength) 1,000 mg (2 x 500 mg) PO Q6H PRN pain #90 tabs 04/28/25 [Rx Confirmed 09/09/25] sennosides 8.6 mg-docusate sodium 50 mg tablet (Senna-S) 1 tab-cap PO QDAY #30 tabs 04/28/25 [Rx Confirmed 09/09/25] oxycodone 5 mg tablet 5 mg PO Q6H PRN pain #28 tabs 06/24/25 [Rx Confirmed 09/09/25] gabapentin 300 mg capsule 300 mg PO QHS #60 caps 07/08/25 [Rx Confirmed 09/09/25] Exam Exam Patient is in no acute distress and is cooperative with the examination today. Breathing is nonlabored. Patient has a normal mood and affect. The patient has a gait that is nonantalgic Bilateral extremities were evaluated and demonstrates sensation intact to light touch. Palpable pedal pulses are present. No significant edema is present. Bilateral hips were examined. The patient has no pain with log roll of the hips. Internal rotation to 30 degrees and external rotation to 30 degrees is painless. Negative FADIR. Left knee incisions clean dry intact. Range of motion 0 to 105 degrees Right knee is tender to palpation medially. There is varus deformity. Knee feels stable to varus and valgus stress as well as X-rays of the bilateral knees demonstrate significant joint space narrowing medially of the right knee with complete obliteration of the medial joint space. The left knee demonstrates a cementless total knee replacement in alignment and position Assessment and Plan Problem List (1) History of total right knee replacement: Status: Acute Plan: Patient is a pleasant 60-year-old male status post left total knee replacement. He is doing well. The pain in his right knee is affecting his quality life and happiness. He has tried multiple injections as well as anti-inflammatories and home exercises. He reports the pain is affecting his quality life and happiness. We discussed a right total knee replacement is a reasonable option The nature and purpose of the right total knee replacement, alternative method(s) of treatment, the material risks involved, and the possibility of complications were fully explained to the patient. The patient does NOT have any of the following contraindications to TKA: - Active infection of the knee joint, OR - Active systemic bacteremia, OR - Active skin infection or open wound at surgical site, OR - Neuropathic arthritis, OR - Severe, rapidly progressive neurological disease, OR - Severe medical condition that makes risks of surgery outweigh the potential benefit The patient was told the most common risks and complications associated with a total knee replacement include, but are not limited to: blood clots in the leg, fatal pulmonary embolism, dislocation of the prosthesis, intraoperative and postoperative fractures of the femur or tibia, infection, failure of the prosthesis or grafting materials, complications from anesthesia, reactions to blood transfusions, postoperative leg length inequality, instability of the knee replacement, nerve damage or injury, vascular injury, delayed wound healing, infection, other injury or even . In addition, there are risks associated with anesthesia given during this operation. Also, the patient was told that after undergoing a total knee replacement there may still be persistent pain or disability. The patient was informed that the success of this operation in part depends upon the mechanical devices which are going to be implanted and that these devices can fail or malfunction, and may need to be repaired or replaced and there are no guarantees as to the longevity of this device or its parts and that it or its parts could fail prematurely. The patient was also notified that during the course of surgery, there may be a need to use bone graft from donors, and that any bone graft used will be carefully screened for communicable diseases, including AIDS, hepatitis, Greg-Creutzfeldt, or other diseases, but despite the screening procedures, there is a small chance that they could contract one of these diseases. Finally, the patient was asked to follow completely and fully with all advice and recommended treatments, and that recovery and ultimate outcome are affected by their compliance with recommended treatment. We discussed the risks, benefits and treatment alternatives, and the patient is interested in proceeding with surgery. We will try to set this up as expeditiously as possible. Office Procedures GNS Level of Care Nursing/Assessment Patient Status: Established Patient Nursing Assessment/Reassesment: Medication Reconciliation, Update PMH in EMR and Vital Signs Coordination of Care: Complex Care and Chronic Disease 1-5, Education Complex Pt/Fam, Consent,records obtained, informed consent, Results/Orders obtained and Staff clarify orders Special Needs: Language special needs Established Patient Charge Established Patient Point Assignment: 95 Established Patient Point Charge: EP Level 3 (80-115) MA Intake Visit Data Collection New Patient or Established: Established Patient (seen at [facility] within 3 years) Reason for Visit:: PRE OP R TKA Seen by Clinical Staff ONLY (RN/MA): No 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: 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 PCP or OBGYN visit in last 3 months: Yes Hx Now: No Do You Feel Safe at Home: Yes Authorities Contacted: N/A Questionairres Past Medical History Past Medical History Have you ever been diagnosed with any of the following: Neurological Problems Seizures: No Cardiology Problems Congestive Heart Failure: No Respiratory Problems Chronic Obstructive Pulmonary Disease (COPD): No Smoking: No Smoking Exposure: No Stomache/Intestinal Problems Hepatitis: No Genital/Urinary Problems Renal Disease: No Musculoskeletal Problems Arthritis: Yes Endocrine Problems Diabetes Mellitus Type 1: No Diabetes Mellitus Type 2: No Other Problems Hospitalization: No Shingles: No Blood Transfusions: No Blood Transfusion Reaction: No Anesthesia Reactions: No Cancer: No Subjective Visit Visit for: follow up visit and knee Immunization / Flu Flu Vaccine in the Last 12 Months: No Flu Vaccine Exclusion Criteria: No Exclusion Criteria History of Present Illness Chief complaint: PRE OP R TKA Patient is doing well status post left total knee replacement. He reports the pain is well-controlled. He reports that the right knee is actually considerably worse. The pain in the right knee has been ongoing for several years, He has tried multiple injections and NSAIDs as well as home exercises. The last injection in the right knee only lasted for 1 week Pain Pain level (0-10): 2 Pain duration: ON AND OFF Pain location: inside (medial) and anterior Pain quality: dull and aching Pain timing: increases with activity Ambulatory data Ambulatory device: walker (PATIENT HAS OWN WALKER) and none Treatments Improvement with previous injections: No Improvement with PT: No Improvement with NSAIDS: no Review of Systems Review of Systems: All systems negative unless otherwise noted in HPI.
== END 2025-09-09 11:25 | disposition home or self-care (01) ==
PROVIDERS: Supervising Provider Orthopaedic Surgery Adult Reconstructive Orthopaedic Surgery; Visit Provider Orthopaedic Surgery Adult Reconstructive Orthopaedic Surgery
DX: Z47.1 Aftercare following joint replacement surgery (principal); Z96.652 Presence of left artificial knee joint; M25.561 Pain in right knee
CPT/HCPCS: 99213; G0463

== ENCOUNTER → 2025-09-10 | Outpatient (CLI) | payer MEDICAID, SELFPAY ==
--- NOTE | 2025-09-10 16:00 | XR_ITS ---
Examination: CT right lower extremity, without contrast. 2-D sagittal reconstructions. 2-D coronal reconstructions. 3-D reconstructions. Date and time of exam: September 10, 2025, 1611 hours INDICATIONS: Diagnosis primary unilateral osteoarthritis right knee, right knee pain 1 year CTDI: vol (mGy): 9.8 DLP: (mGycm): 785 Technique: Multiple 1.25 mm axial sections of the right lower extremity without intravenous contrast have been obtained. 2-D sagittal and coronal reconstructions have been obtained. 3-D reconstructions have been obtained. Low dose protocols were performed. One or more of the following dose reduction techniques were used; automated exposure control, adjustment of the mA and/or KV according to patient size, use of iterative reconstruction technique. Findings: Mild osteopenia Mild to moderate narrowing hip joints No hip fractures or hip dislocations Advanced right knee tricompartment osteoarthritis Severe narrowing [id number] medial joint space right knee No fractures No patellar dislocation Irregularity and depression mild of the lateral tibial plateau IMPRESSION: Advanced right knee tricompartment osteoarthritis including severe narrowing [id number] medial joint space right knee
== END | disposition home or self-care (01) ==
LOC: CCTX 15:53
PROVIDERS: Referring Provider Orthopaedic Surgery Adult Reconstructive Orthopaedic Surgery; Visit Provider Orthopaedic Surgery Adult Reconstructive Orthopaedic Surgery
DX: M17.11 Unilateral primary osteoarthritis, right knee (principal); M25.861 Other specified joint disorders, right knee
CPT/HCPCS: 73700

== ENCOUNTER 2025-09-15 06:40 | Day surgery (SDC) | payer MEDICAID, SELFPAY ==
[2025-09-12 09:40] VITALS: BMI 26.5
--- NOTE | 2025-09-12 09:52 | EKG_ITS ---
[facility] Test Date: 2025-09-12 Pat Name: ERIKA SCHAEFER Department: Room: - Gender: Male Manager Recruiting: LAWRENCE : 1965 Requested By: Godfrey Rice Order Number: [id number] Reading MD: Godfrey Rice Measurements Intervals [place] Rate: 74 P: 6 MN: 170 QRS: -21 QRSD: 105 T: 17 QT: 360 QTc: 401 Interpretive Statements SINUS RHYTHM BORDERLINE LEFT AXIS DEVIATION [QRS AXIS < -20] MODERATE VOLTAGE CRITERIA FOR LVH, CONSIDER NORMAL VARIANT [MEETS CRITERIA IN ONE OF: R(aVL), S(V1), R(V5), R(V5/V6)+S(V1)] No previous ECG available for comparison /[id number]/[email or web address]/[id number]
[2025-09-12 10:43] LABS: Basophils # (Auto) 0.1 Thou/mm3 (0.0-0.2); Basophils % (Auto) 1 % (0-2.5); Eosinophils # (Auto) 0.1 Thou/mm3 (0.0-0.5); Eosinophils % (Auto) 1 % (0-10); Hematocrit 47.7 % (41.0-53.0); Hemoglobin 15.9 g/dL (13.5-16.0); Immature Granulocytes Auto 0.06 Thou/mm3 (0.00-0.00); Lymphocytes # (Auto) 2.4 Thou/mm3 (1.0-4.8); Lymphocytes % (Auto) 37 % (10-50); Mean Corpuscular HGB Conc 33.3 g/dl (31.0-37.0); Mean Corpuscular Hemoglobin 29.9 pg (25.0-35.0); Mean Corpuscular Volume 90 fL (80-100); Monocytes # (Auto) 0.8 Thou/mm3 (0.0-0.8); Monocytes % (Auto) 13 % (0-12); Neutrophils # (Auto) 3.0 Thou/mm3 (1.8-7.7); Neutrophils % (Auto) 47 % (37-80); Nucleated Red Blood Cell # 0.00 Thou/mm3 (0.00-0.00); Nucleated Red Blood Cell % 0 /100 WBC (0); Platelet Count 216 Thou/mm3 (140-440); RDW Standard Deviation 43.6 fL (35.1-43.9); Red Blood Count 5.32 Miln/mm3 (4.50-5.90); White Blood Count 6.5 Thou/mm3 (3.8-10.6)
[2025-09-12 10:55] LABS: INR 1.0 (0.9-1.3); Partial Thromboplastin Time 25.7 Seconds (22.0-36.0); Prothrombin Time 10.4 Seconds (9.0-12.2)
[2025-09-12 10:56] LABS: Alanine Aminotransferase 58 U/L (10-49); Albumin, Serum 5.4 gm/dL (3.4-4.8); Albumin/Globulin Ratio 2.2 (1.2-2.2); Alkaline Phosphatase 100 U/L (46-116); Anion Gap 11 (7-16); Aspartate Amino Transferase 46 U/L (0-34); BUN/Creatinine Ratio 13 Ratio (12-20); Bilirubin,Total 1.2 mg/dL (0.3-1.2); Blood Urea Nitrogen 12 mg/dL (9-23); Calcium 9.9 mg/dL (8.3-10.6); Calcium (Corrected) 9.9 mg/dL (8.5-10.1); Carbon Dioxide 28.3 mMol/L (20.0-31.0); Chloride 104 mMol/L (98-107); Creatinine (Component) 0.9 mg/dL (0.6-1.3); Estimated Creatinine Clearance 85.1 mL/min (>60); Globulin 2.5 gm/dL (2.3-3.5); Glucose 106 mg/dL (74-106); Osmolality,Calculated 284 (275-295); Potassium 4.5 mMol/L (3.4-5.1); Sodium 143 mMol/L (136-145); Total Protein 7.9 gm/dL (5.7-8.2); eGFR > 60 See Note
[2025-09-15] VITALS (17 sets, daily range): BP systolic 135–172; BP diastolic 87–104; PULSE 68–91; RESP 12–20; TEMP 36.5–36.8; O2SAT 95–98; BMI 26.2
--- NOTE | 2025-09-15 07:27 | SUR.PREOP ---
Patient expressed gratitude for prayer before their procedure.
[2025-09-15] MEDS: ACETAMINOPHEN 325 MG TABLET 650 MG PO (07:53)
[2025-09-15] MEDS: PREGABALIN 75 MG CAPSULE PO (07:53)
[2025-09-15] MEDS: MELOXICAM 7.5 MG TABLET PO (07:53)
[2025-09-15] MEDS: RINGERS LACTATED 1000 ML 1,000 ML 20 ML IV (07:54)
--- NOTE | 2025-09-15 09:11 | XR_ITS ---
EXAMINATION: XR knee limited RT 1-2V ORDERING PROVIDER: Ethan Frederick MD HISTORY: postop TECHNIQUE: 2 radiographs of the right knee were obtained. COMPARISON: 10/04/2024, bilateral knee radiographs. FINDINGS: Portable postoperative images of the right knee demonstrate total knee arthroplasty changes. No perihardware lucency or evidence of hardware fracture. Expected subcutaneous edema and blood products. No unexpected retained foreign objects identified. IMPRESSION: Immediate postsurgical changes from right knee arthroplasty without radiographic findings for unexpected retained foreign object.
--- NOTE | 2025-09-15 09:12 | ESOP_ITS ---
Date of Procedure 09/15/25 Pre Op Diagnosis right knee osteoarthritis Post Op Diagnosis right knee osteoarthritis Procedure right total knee replacement alexia Findings none Procedure Description Indication: The patient has a long history of right knee pain. X-rays show degenerative arthritis involving the knee. Over the past several years the patient has had increasing pain, progressive limitation in function. He has failed conservative measures including activity modification, physical therapy, injections, anti- inflammatories, and assistive devices. After a lengthy discussion of the risks and benefits, the patient presents now for total knee replacement. The nature and purpose of the total knee replacement, alternative method(s) of treatment, the material risks involved, and the possibility of complications were fully explained to the patient. The patient was told the most common risks and complications associated with a total knee replacement include, but are not limited to blood clots in the leg, fatal pulmonary embolism, dislocation of the prosthesis, intraoperative and postoperative fractures of the femur or tibia, infection, failure of the prosthesis or grafting materials, complications from anesthesia, reactions to blood transfusions, postoperative leg length inequality, instability of the knee replacement, nerve damage or injury, vascular injury, delayed wound healing, infections, other injury or even . In addition, there are risks associated with anesthesia given during this operation, temporary or permanent numbness on the skin lateral to the incision can be a complication unique to total knee surgery, and kneeling can be painful after knee replacement surgery. Also, the patient was told that after undergoing a total knee replacement there may still be pain or disability. We discussed with the patient that we will be using a robot-assisted technology. We discussed that there is a possibility of converting to manual instrumentation. The patient was informed that the success of this operation in part depends upon the mechanical devices which are going to be implanted and that these devices can fail or malfunction, and may need to be repaired or replaced and there are no guarantees as to the longevity of this device or its part and that it or its parts could fail prematurely. Finally, the patient was asked to follow completely and fully with all advice and recommended treatments, and that recovery and ultimate outcome are affected by their compliance with recommended treatment. Surgical technique: Patient was marked and consented in the pre-operative area. The patient was brought to the operating room and placed on the operating table in a supine position. Prior to positioning, a timeout procedure was performed between the surgeon, the anesthesiologist, and the nursing staff where the patient and the operative side were identified and confirmed. After adequate general anesthetic was obtained, the right lower extremity was prepped and draped in the usual sterile fashion. A weight based dose of Cefazolin were administered within 1 hour prior to incision. The robot was preregistered and calibrated before the incision. The extremity was exsanguinated with an esmarch badge and tourniquet inflated to 250mmHg. A midline incision was made. A median parapatellar arthrotomy was made. The patella was subluxed laterally. A medial release was performed to expose the medial tibia. His femoral and tibial pins were placed through an intra incisional manner for both cases. Every effort was made to ensure that the distalmost aspect of the pin was hung in the second cortex. The arrays were then tightened several times to ensure that it was fixed for the remainder of the case. Both femoral and tibial checkpoints were then placed. We then went through the registration process of the bone. We then assessed the knee deformity and attempted to correct it. We also used the robot to aid in judging laxity in both extension and flexion. Final based on laxity and alignment we changed the preoperative assessment to obtain proper proper implant positioning and to correct deformity. Attention was then placed to the tibia. We made a tibial cut using the robot ensuring that both the MCL and the patella tendon were protected with retractors. We then went to the femur and made the posterior cut followed by the anterior cut and the anterior chamfer. The bone was then removed and we made a distal femur cut and a posterior chamfer cut. We verified all cuts. A trial reduction was performed with a size 5 femoral component and a size 5 keeled tibial component. The patella tracked centrally, and no lateral ret inacular release was necessary. The trial implants were removed. The arrays, pins, and checkpoints were all removed. We performed a verification that all pins were removed. The cut bone surfaces were lavaged. A size 5 right femoral component, a size 5 keeled tibial component were impacted into position. The knee was felt to be well balanced in the sagittal and coronal plane. The final 5x10 mm cruciate- substituting articular insert was impacted into the tibial tray. The knee was brought out to full extension, flexed up to 120 degrees. It was stable to varus and valgus stress and appropriately balanced in flexion and extension. The wounds were copiously irrigated following deflation of tourniquet. The medial retinaculum was reapproximated with #1 vicryl and quill. The subcutaneous tissues were closed with 0 and 2-0 interrupted Vicryl. The skin was closed with 3-0 Monofilament V loc suture. A sterile dressing was applied. The patient was transferred to a bed and brought to recovery in stable condition. The patient tolerated the procedure well. There were no intraoperative complications. Sponge and needle counts were correct times 2. As the attending surgeon, I attest I was present and performed the entire operation. Grafts/Implants Size 5 CR Femur Size 5 Tibia 10mm poly CS Anesthesia spinal Implants Implants comments: nba Pathology / specimen None Pathology comment: none Estimated Blood Loss 150 Condition Stable Disposition same day Surgeon Ethan Frederick MD Surgical Staff Operation Date: 09/15/25 11:00 <No data on this case meets the specified criteria>
--- NOTE | 2025-09-15 10:52 | SUR.PHASEI ---
1052 Patient arrived to recovery resting comfortably in [facility], LMA in place with oxygen 5L via nasal cannula inserted into LMA, breathing unlabored, vital signs stable, dressing intact to right knee; prineo, telfa, abd, webril, jarrod wraps, no bleeding noted, bilateral dorsalis pedis pulse present when palpated, patient has good circulation to right lower extremity; skin color normal for patient and warm to touch, report received from Chris GOMEZ and Bennett THOMPSON
[2025-09-15] MEDS: fentaNYL CIT INJ 50 mCg/ML AMP 2ML IVP ×2 (11:26→11:35)
--- NOTE | 2025-09-15 11:53 | SUR.PHASEII ---
Received report on pt. s/p knee surgery from Carole Nguyen RN, x-ray at bedside, pt. is sitting up tolerating oral fluids, VSS with exception of BP 160/104, pedal pulses palpable, cap refill <3 seconds.
[2025-09-15] MEDS: oxyCODONE HCL 5 MG IR TAB PO (12:04)
--- NOTE | 2025-09-15 14:00 | SUR.PHASEII ---
1400 patient cleared by physical therapy, voided in restroom during therapy session, will proceed with discharge
[2025-09-15] MEDS: ONDANSETRON INJ 2 MG/ML INJ 2 ML 4 MG IVP (14:08)
--- NOTE | 2025-09-15 14:25 | SUR.PHASEII ---
1408 patient complained of nausea, Zofran 4mg via IVP administered per anesthesia order, will monitor for effectiveness 1425 medication effective, patient denies nausea, will proceed with discharge
--- NOTE | 2025-09-15 14:41 | SUR.PHASEII ---
1441 patient meets discharge criteria from recovery, awake and alert, breathing unlabored, vital signs stable, denies pain and nausea, per patient his pain is tolerable, dressing intact; no bleeding noted, assisted with dressing into his clothing by his , discharge instructions given to patient and patients with the assistance of the telephone nursing home assistant administrator Juan Alberto ID#[id number], patient signed discharge instructions. Patient given all his belongings prior to discharge, transported via wheelchair and left in a private vehicle.
== END 2025-09-15 14:41 | disposition home or self-care (01) ==
PROVIDERS: Anesthesiology; PCP Licensed Practical Nurse; Referring Provider Orthopaedic Surgery Adult Reconstructive Orthopaedic Surgery; Visit Provider Orthopaedic Surgery Adult Reconstructive Orthopaedic Surgery
PROC: (CPT 20985; principal; 2025-09-15 11:00)
DX: M17.11 Unilateral primary osteoarthritis, right knee (principal); Z01.810 Encounter for preprocedural cardiovascular examination
CPT/HCPCS: 20985; 27447; 36415; 73560; 80053; 85025; 85610; 85730; 93005; 97162; A4217; A4649; C1713; C1776; J0690; J2250; J2405; J2704; J2795; J3010; J3490; J7120; A4648; A9270

== ENCOUNTER 2025-09-30 09:37 | Outpatient (AMB) | payer MEDICAID, SELFPAY ==
--- NOTE | 2025-09-30 10:02 | PD.ORTHCLVIS ---
Vital signs 09/30/25 10:03 Height 1.75 m Height Method Stated Weight 79.067 kg Weight Measurement Method Standing Scale BMI 25.8 BP 131/86 H Blood Pressure Source Automatic Cuff Blood Pressure Location Left Upper Arm Position Sitting Respiration 18 Pulse 101 H Pulse Source Monitor Temp 97.1 F Temp Source Temporal Artery Scan Pulse Oximetry (%) 95 Oxygen Delivery Method Room Air Med/Allergies Allergies & Medications Allergies No Known Drug Allergies Allergy (Verified 09/30/25 10:03) Medication Reconciliation lisinopril 5 mg tablet 5 mg PO DAILY 09/12/25 [History Confirmed 09/30/25] acetaminophen 500 mg tablet (Acetaminophen Extra Strength) 1,000 mg (2 x 500 mg) PO Q6H PRN pain #90 tabs 09/15/25 [Rx Confirmed 09/30/25] aspirin 81 mg tablet,delayed release 81 mg PO BID #60 tabs 09/15/25 [Rx Confirmed 09/30/25] doxycycline hyclate 100 mg tablet 100 mg PO BID #14 tabs 09/15/25 [Rx Confirmed 09/30/25] gabapentin 300 mg capsule 300 mg PO .qhs #30 caps 09/15/25 [Rx Confirmed 09/30/25] sennosides 8.6 mg-docusate sodium 50 mg tablet (Senna-S) 1 tab-cap PO QDAY #30 tabs 09/15/25 [Rx Confirmed 09/30/25] oxycodone 5 mg tablet 5 mg PO Q6H PRN pain #28 tabs 09/23/25 [Rx Confirmed 09/30/25] Exam Exam Patient is in no acute distress and is cooperative with the examination today. Breathing is nonlabored. Patient has a normal mood and affect. Bilateral extremities were evaluated and demonstrates sensation intact to light touch. Palpable pedal pulses are present. No significant edema is present. Bilateral hips were examined. The patient has no pain with log roll of the hips. Internal rotation to 30 degrees and external rotation to 30 degrees is painless. Negative FADIR. Right knee was examined today. The right knee is in neutral alignment. The incision is clean dry and intact. Assessment and Plan Problem List (1) History of total right knee replacement: Status: Acute Plan: Patient is a pleasant 60-year-old male status post right total knee replacement. We will start him with outpatient therapy. We will see him back in 4 weeks for routine follow-up Office Procedures GNS Level of Care Nursing/Assessment Patient Status: Established Patient Nursing Assessment/Reassesment: Medication Reconciliation, Update PMH in EMR and Vital Signs Coordination of Care: Complex Care and Chronic Disease 1-5, Education Complex Pt/Fam, Consent,records obtained, informed consent, Results/Orders obtained and Staff clarify orders Established Patient Charge Established Patient Point Assignment: 95 Established Patient Point Charge: EP Level 3 (80-115) MA Intake Visit Data Collection New Patient or Established: Established Patient (seen at [facility] within 3 years) Reason for Visit:: 2 WK R TKA Seen by Clinical Staff ONLY (RN/MA): No Callisthenics Instructor Required: Yes PCP or OBGYN visit in last 3 months: Yes Hx Now: No Do You Feel Safe at Home: Yes Authorities Contacted: N/A Questionairres Past Medical History Past Medical History Have you ever been diagnosed with any of the following: Neurological Problems Seizures: No Cardiology Problems Congestive Heart Failure: No Hypertension: Yes Respiratory Problems Chronic Obstructive Pulmonary Disease (COPD): No Smoking: No Smoking Exposure: No Stomache/Intestinal Problems Hepatitis: No Genital/Urinary Problems Renal Disease: No Musculoskeletal Problems Arthritis: Yes Endocrine Problems Diabetes Mellitus Type 1: No Diabetes Mellitus Type 2: No Other Problems Hospitalization: No Shingles: No Blood Transfusions: Yes Blood Transfusion Reaction: Yes Anesthesia Reactions: Yes Cancer: No Subjective Visit Visit for: follow up visit and knee Immunization / Flu Flu Vaccine in the Last 12 Months: No Flu Vaccine Exclusion Criteria: No Exclusion Criteria History of Present Illness Chief complaint: PRE OP R TKA Patient is doing well status post right total knee replacement. He is doing well 2 weeks postop. Pain Pain level (0-10): 2 Pain duration: ON AND OFF Pain location: inside (medial) and anterior Pain quality: dull and aching Pain timing: increases with activity Ambulatory data Ambulatory device: walker Treatments Improvement with previous injections: No Improvement with PT: No Improvement with NSAIDS: no Review of Systems Review of Systems: All systems negative unless otherwise noted in HPI.
[2025-09-30 10:03] VITALS: BP 131/86; PULSE 101; RESP 18; TEMP 36.2; O2SAT 95; BMI 25.8
== END 2025-09-30 10:09 | disposition home or self-care (01) ==
LOC: HODSRG 09:37
PROVIDERS: Supervising Provider Orthopaedic Surgery Adult Reconstructive Orthopaedic Surgery; Visit Provider Orthopaedic Surgery Adult Reconstructive Orthopaedic Surgery
DX: Z47.1 Aftercare following joint replacement surgery (principal); Z96.651 Presence of right artificial knee joint; I10 Essential (primary) hypertension
CPT/HCPCS: 99213; G0463